=== PATIENT | male | born 1995 | race Caucasian/White ===

== ENCOUNTER 2023-03-20 12:38 | Emergency (ER) | payer OTHER ==
[~2023-03-20] VITALS: Ht 175.3 cm; Wt 80.0 kg
[2023-03-20 12:47] VITALS: BP 123/63; PULSE 54; RESP 19; TEMP 97.8; O2SAT 99
[2023-03-20] MEDS: ACETAMINOPHEN 325MG TABLET PO ONE (14:52)
== END 2023-03-20 15:43 | disposition home or self-care (01) ==
LOC: ER 12:56
DX: M54.2 Cervicalgia (principal)
CPT/HCPCS: 99281